=== PATIENT | male | born 1995 | race Caucasian/White ===

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

== ENCOUNTER 2017-04-02 01:00 | Inpatient (IN) | payer OTHER ==
[2017-04-02 01:45] LABS: ABS Basophils 0.1 10^3/ul (0-0.2); ABS Eosinophils 0.3 10^3/ul (0-0.6); ABS Lymphocytes 2.2 10^3/ul (1.0-4.8); ABS Monocytes 0.8 10^3/ul (0-0.8); ABS Nucleated RBC 0 10^3/ul; Eosinophil % 2.9 % (0-6); Hematocrit 45 % (42-52); Hemoglobin 15.6 g/dl (14.0-18.0); Lymphocyte % 23.4 % (25-47); Mean Corpuscular HGB Conc 35 g/dl (31-36); Mean Corpuscular Hemoglobin 30 pg (27-31); Mean Corpuscular Volume 86 fL (80-94); Mean Platelet Volume 8 um3 (7.4-10.4); Nucleated Red Blood Cells % 0.1; Platelet Count 227 10^3/ul (150-450); Red Blood Count 5.15 10^6/ul (4.0-5.4); Red Cell Distribution Width 13 % (10.5-15); White Blood Count 9.4 10^3/ul (3.5-10.8)
[2017-04-02 01:51] LABS: Urine Appearance Clear; Urine Blood Negative (Negative); Urine Color Yellow; Urine Ketones Trace (Negative); Urine Protein Negative (Negative); Urine Specific Gravity 1.021 (1.010-1.030); Urine Urobilinogen Positive (Negative)
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
--- NOTE | 2017-04-02 09:10 | PN ---
ED Flex Patient Progress Note Date of Service: 04/02/17 Subjective: This is a 21 year-old M who is pending admission to [facility] OR transfer to another psychiatric facility secondary to suicidal ideation and depression. Whichever bed opens up first. Pt offers no complaints at this time, sleeping upon arrival. Eating, drinking and sleeping comfortably. Objective: Vitals: Most recent vital signs documented below. General NAD, Alert and oriented x3. Heart: rrr at 60 bpm Lungs: CTA or with rales, rhonchi, wheezing Laboratory: Current laboratory results documented below. Assessment: depression suicidal ideation pending admission once bed opens up Plan: Pending psychiatric transfer OR admit pending bed opening. Will follow up daily. Vital Signs Temp Pulse Resp BP Pulse Ox 98.8 F 57 16 113/68 99 04/02/17 02:31 04/02/17 02:31 04/02/17 02:31 04/02/17 02:31 04/02/17 02:31 Lab Results - Entire Visit 04/02/17 04/02/17 04/02/17 01:35 01:35 01:35 WBC 9.4 RBC 5.15 Hgb 15.6 Hct 45 MCV 86 MCH 30 MCHC 35 RDW 13 Plt Count 227 MPV 8 Neut % (Auto) 64.3 Lymph % (Auto) 23.4 L Dav[place] % (Auto) 8.8 Eos % (Auto) 2.9 Baso % (Auto) 0.6 Absolute Neuts (auto) 6.0 Absolute Lymphs (auto) 2.2 Absolute Monos (auto) 0.8 Absolute Eos (auto) 0.3 Absolute Basos (auto) 0.1 Absolute Nucleated RBC 0 Nucleated RBC % 0.1 Sodium Potassium Chloride Carbon Dioxide Anion Gap BUN Creatinine Est GFR ( Amer) Est GFR (Non-Af Amer) BUN/Creatinine Ratio Glucose Calcium Total Bilirubin AST ALT Alkaline Phosphatase Total Protein Albumin Globulin Albumin/Globulin Ratio TSH Urine Color Yellow Urine Appearance Clear Urine pH 7.0 Ur Specific [place] 1.021 Urine Protein Negative Urine Ketones Trace H Urine Blood Negative Urine Nitrate Negative Urine Bilirubin Negative Urine Urobilinogen Positive H Ur Leukocyte Esterase Negative Urine Glucose Negative Urine Ascorbic Acid * H Salicylates Urine Opiates Screen None detected Acetaminophen Ur Barbiturates Screen None detected Ur Phencyclidine Scrn None detected Ur Amphetamines Screen None detected U Benzodiazepines Scrn None detected Urine Cocaine Screen None detected U Cannabinoids Screen None detected Serum Alcohol 04/02/17 01:35 WBC RBC Hgb Hct MCV MCH MCHC RDW Plt Count MPV Neut % (Auto) Lymph % (Auto) [place] % (Auto) Eos % (Auto) Baso % (Auto) Absolute Neuts (auto) Absolute Lymphs (auto) Absolute Monos (auto) Absolute Eos (auto) Absolute Basos (auto) Absolute Nucleated RBC Nucleated RBC % Sodium 133 Potassium 3.7 Chloride 100 L Carbon Dioxide 29 Anion Gap 4 BUN 13 Creatinine 0.87 Est GFR ( Amer) 145.4 Est GFR (Non-Af Amer) 113.0 BUN/Creatinine Ratio 14.9 Glucose 108 H Calcium 9.5 Total Bilirubin 0.60 AST 23 ALT 14 Alkaline Phosphatase 77 Total Protein 7.2 Albumin 4.6 Globulin 2.6 Albumin/Globulin Ratio 1.8 TSH 1.97 Urine Color Urine Appearance Urine pH Ur Specific [place] Urine Protein Urine Ketones Urine Blood Urine Nitrate Urine Bilirubin Urine Urobilinogen Ur Leukocyte Esterase Urine Glucose Urine Ascorbic Acid Salicylates < 2.50 Urine Opiates Screen Acetaminophen < 15 Ur Barbiturates Screen Ur Phencyclidine Scrn Ur Amphetamines Screen U Benzodiazepines Scrn Urine Cocaine Screen U Cannabinoids Screen Serum Alcohol < 10
[2017-04-02] MEDS ORDERED: Acetaminophen TAB* 325 MG PO PRN (14:04)
[2017-04-02] MEDS ORDERED: Al Hydrox/Mg Hydrox/Simet LIQ* 30 ML UDC PO PRN (14:04)
[2017-04-02] MEDS ORDERED: hydrOXYzine HCL TAB* 50 MG PO PRN (14:05)
[2017-04-02] MEDS: FLUoxetine CAP* 20 MG PO SCH (15:07)
--- NOTE | 2017-04-02 23:08 | ED ---
Brennan Lowe Tiffany, scribed for Izabel Daniel MD on 04/02/17 at 1229 . Progress - Progress Note Progress Note: Patient not signed out to Dr. Polanco at shift change. Dr. Daniel will assume patient care instead. - Consult/PCP Time Called: Re-Evaluation - Re-Evaluation firs Re-Evaluation Time: 12:06 - 04/02/17, Dr. Daniel Change: Unchanged - 12:06 Comment: Patient is re-examined. Patient reports not feeling suicidal at the moment, but is still depressed. His exam is normal except that he has halting speech, superficial abrasions to the neck and bilateral arms. Abrasions are not bleeding and have no exudates. Patient is alert and oriented x3, calm and cooperative. Patient is informed of admission to BHU at [facility]. He will be admitted to Dr. Bradford (psychiatrist), per Fran (mental health). He is agreeable. Also advised that there are resources at [facility] for further care once he is discharged. Course/Dx - Course Course Of Treatment: Patient is re-examined by Dr. Daniel in Flex Unit prior to disposition of admission to BHU by Dr. Bradford. Normal exam except superficial abrasions to neck and bilateral arms. No bleeding. No exudate. Pt is in no apparent distress. Pt has no physical or medical complaints. Patient agreeable to admission to BHU at [facility]. - Diagnoses Provider Diagnoses: Depressive disorder, Evidence of self-harm The documentation as recorded by the Brennan echevarria Tiffany accurately reflects the service I personally performed and the decisions made by , Izabel Daniel MD.
[2017-04-03] MEDS: FLUoxetine CAP* 20 MG PO SCH (10:57)
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
[2017-04-04] MEDS: FLUoxetine CAP* 20 MG PO SCH (09:10)
--- NOTE | 2017-04-04 11:07 | PN ---
Subjective - Subjective Date of Service: 04/04/17 Service Type: 33934 Hosp care 25 min moderate complexity Subjective: Blanco is found reading in the milieu wearing scrubs. He is agreeable to discussing his care although he is very anxious. He does offer a few smiles, although he does not make eye contact while smiling. He talked to his siblings last night. He declined to talk to his father "in that moment" but states he is willing to do so now. He is eager to get back to school, not wanting to fall behind. Objective - Appearance Appearance: Thin Framed Dysmorphic Features: No Hygiene: Normal Grooming: Fairly Well Kept - Behavior Psychomotor Activities: Normal Exhibits Abnormal Movement: No - Attitude and Relatedness Attitude and Relatedness: Anxious Eye Contact: Poor - Speech Quality: Pressured Latencies: Normal Quantity: Terse - Mood Patient's Decription of Mood: "Okay" - Affect Observed Affect: Constricted Affect Consistent with: Dysphoria - Thought Process Patient's Thought Process: Coherent Thought Content: No Passive Wish, No Suicidal Planning, No Homicidal Ideation, No Paranoid Ideation - Sensorium Experiencing Hallucinations: No, Sensorium is Clear Type of Hallucinations: Visual: No, Auditory: No, Command: No - Level of Consciousness Level of Consciousness: Alert Orientation: Yes Intact, Yes Orientated to Time, Yes Orientated to Place, Yes Orientated to Person - Impulse Control Impulse Control: Intact - Insight and Judgement Insight and Judgement: Fair - Group Participation Particating in Group Activities: Yes - Medication Management Medication Management Adherence: Yes - Additional Observations Comments: Blanco is dressed in scrubs, makes poor eye contact, has uncombed hair, and is unshaven. Assessment - Assessment Merits Inpatient Hospitalization: For Immediate Safety, For Ongoing Evaluation Inpatient DSM-V Dx: F33.2 Clinical Impression: Blanco has severe symptoms of depression, such as extreme guilt, concentration difficulties, difficulty eating enough, and suicidal thoughts. He will carry a diagnosis of Major Depressive D/o, recurrent, severe. There are some curiosities to his speech and some latencies which are unusual. He also seems to lose track of his thoughts at times. Plan - Plan Treatment Plan: Name: BLANCO YANICK Birthdate: 1995 [id number] Continued Medication Management: Different Medication Medications: Current Medications Acetaminophen (Tylenol Tab*) 650 mg PO Q4H PRN PRN Reason: for pain; or Temp >101 F Al Hydrox/Mg Hydrox/Simethicone (Maalox Plus*) 30 ml PO Q4H PRN PRN Reason: INDIGESTION Aripiprazole (Abilify Tab*) 2 mg PO BEDTIME ALEX Fluoxetine HCl (Prozac Cap*) 40 mg PO DAILY ALEX Last Admin: 04/04/17 09:10 Dose: 40 mg Hydroxyzine HCl (Atarax Tab*) 50 mg PO Q6H PRN PRN Reason: ANXIETY - Discharge Plan Additional Comments: Blanco is agreeable to a start of 2 mg of Abilify PO QHS. He also agrees to fill out the MMPI. He further agrees to stay until Sunday.
--- NOTE | 2017-04-04 13:29 | PN ---
[facility]: Group Therapy Note - Service Type Service Type: [id number] Group Psychotherapy - Cognitive Behavioral Group Therapy ( CBT):Patient was attentive and participatory in CBT programming this morning, and remained in good behavioral control. Patient expressed positive insights regarding relevant treatment interventions and goals.
[2017-04-04] MEDS: ARIPiprazole TAB* 2 MG PO SCH (22:05)
[2017-04-05] MEDS: FLUoxetine CAP* 20 MG PO SCH (09:03)
--- NOTE | 2017-04-05 15:21 | PN ---
Subjective - Subjective Date of Service: 04/05/17 Service Type: 02584 Hosp care 15 min low complexity Subjective: Blanco is found sitting in the milieu reading a book. he states it's his third novel since he's been here and he hopes he can finish it. He is noticeably less anxious. Although he still apologizes, it is only once or twice during our conversation. Although his father was expected by staff today, apparently his father has gone home. Blanco feels like this is a good sign, that he is well enough to be discharged back to school rather than going home to [place] with his dad. He offers no complaints about the medications. He is pleasant and polite in conversation. Objective - Appearance Appearance: Thin Framed Dysmorphic Features: No Hygiene: Normal Grooming: Well Kept - Behavior Psychomotor Activities: Normal Exhibits Abnormal Movement: No - Attitude and Relatedness Attitude and Relatedness: Cooperative Eye Contact: Fair - Speech Quality: Pressured Latencies: Normal Quantity: Appropriate - Mood Patient's Decription of Mood: "Good" - Affect Observed Affect: Non-labile Affect Consistent with: Euthymia - Thought Process Patient's Thought Process: Goal Directed Thought Content: No Passive Wish, No Suicidal Planning, No Homicidal Ideation, No Paranoid Ideation - Sensorium Experiencing Hallucinations: No, Sensorium is Clear Type of Hallucinations: Visual: No, Auditory: No, Command: No - Level of Consciousness Level of Consciousness: Alert Orientation: Yes Intact, Yes Orientated to Time, Yes Orientated to Place, Yes Orientated to Person - Impulse Control Impulse Control: Intact - Insight and Judgement Insight and Judgement: Good - Group Participation Particating in Group Activities: Yes - Medication Management Medication Management Adherence: Yes - Additional Observations Comments: Blanco is dressed in scrubs, makes better eye contact, smiles frequently, and is able to concentrate on books. Assessment - Assessment Merits Inpatient Hospitalization: For Stabilization Inpatient DSM-V Dx: F33.2 Clinical Impression: Blanco has severe symptoms of depression, such as extreme guilt, concentration difficulties, difficulty eating enough, and suicidal thoughts. He will carry a diagnosis of Major Depressive D/o, recurrent, severe. There are some curiosities to his speech and some latencies which are unusual. He also seems to lose track of his thoughts at times. Plan - Plan Treatment Plan: Name: BLANCO YANICK Birthdate: 1995 [id number] Medications: Current Medications Acetaminophen (Tylenol Tab*) 650 mg PO Q4H PRN PRN Reason: for pain; or Temp >101 F Al Hydrox/Mg Hydrox/Simethicone (Maalox Plus*) 30 ml PO Q4H PRN PRN Reason: INDIGESTION Aripiprazole (Abilify Tab*) 2 mg PO BEDTIME [facility] Last Admin: 04/04/17 22:05 Dose: 2 mg Fluoxetine HCl (Prozac Cap*) 40 mg PO DAILY [facility] Last Admin: 04/05/17 09:03 Dose: 40 mg Hydroxyzine HCl (Atarax Tab*) 50 mg PO Q6H PRN PRN Reason: ANXIETY - Discharge Plan Discharge Plan: Outpatient Follow Up Outpatient Program: Counseling[facility]Psych Services at [place] Additional Comments: Blanco is agreeable to a start of 2 mg of Abilify PO QHS. He also agrees to fill out the MMPI. He further agrees to stay until Sunday.
--- NOTE | 2017-04-05 16:24 | PN ---
MHU: Group Therapy Note - Service Type Service Type: 06954 Group Psychotherapy - Medication Education Group: Patient attended group and presented with flat affect that did not vary with discussion. Although responsive to direct prompts to respond to questions, patient did not engage in spontaneous conversation.
[2017-04-05] MEDS: ARIPiprazole TAB* 2 MG PO SCH (21:33)
[2017-04-06 08:13] VITALS: BP 131/62
[2017-04-06] MEDS: FLUoxetine CAP* 20 MG PO SCH (08:24)
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
== END 2017-04-06 11:45 | disposition home or self-care (01) | DRG 885 ==
LOC: EEVIPCON 01:00 → ED 01:00 → BSU 14:04
PROVIDERS: ADMIT Psychiatry & Neurology Psychiatry; ATTEND Psychiatry & Neurology Psychiatry
PROC: GZHZZZZ Group Psychotherapy (ICD-10-PCS; principal; 2017-04-05)
DX: F33.2 Major depressive disorder, recurrent severe without psychotic features (principal); R45.851 Suicidal ideations; F41.1 Generalized anxiety disorder; Z91.5 Personal history of self-harm; Z72.89 Other problems related to lifestyle
CPT/HCPCS: 36415; 80053; 80061; 80307; 80320; 80329; 81003; 83036; 84443; 85025; 90853; 93005; 99222; 99231; 99232; 99238; 99284; A9270-GY; G0480

== ENCOUNTER 2017-04-25 13:20 | Emergency (ER) | payer OTHER ==
[2017-04-25 13:40] LABS: Urine Appearance Clear; Urine Blood Negative (Negative); Urine Color Straw; Urine Ketones Negative (Negative); Urine Protein Negative (Negative); Urine Specific Gravity 1.009 (1.010-1.030); Urine Urobilinogen Negative (Negative)
[2017-04-25 14:12] LABS: Hematocrit 44 % (42-52); Hemoglobin 15.3 g/dl (14.0-18.0); Mean Corpuscular HGB Conc 35 g/dl (31-36); Mean Corpuscular Hemoglobin 30 pg (27-31); Mean Corpuscular Volume 86 fL (80-94); Mean Platelet Volume 9 um3 (7.4-10.4); Platelet Count 215 10^3/ul (150-450); Red Blood Count 5.13 10^6/ul (4.0-5.4); Red Cell Distribution Width 13 % (10.5-15)
[2017-04-25 14:29] LABS: EGFR Non-African American 126.4 (>60)
[2017-04-25 14:52] LABS: ABS Basophils 0 10^3/ul (0-0.2); ABS Eosinophils 0.1 10^3/ul (0-0.6); ABS Lymphocytes 1.5 10^3/ul (1.0-4.8); ABS Monocytes 0.4 10^3/ul (0-0.8); ABS Neutrophils 3.8 10^3/ul (1.5-7.7); ABS Nucleated RBC 0 10^3/ul; Eosinophil % 2.5 % (0-6); Lymphocyte % 25.4 % (25-47); Nucleated Red Blood Cells % 0.3
--- NOTE | 2017-04-25 18:22 | ED ---
Haider Lowe Angela, scribed for Honorio Brown MD on 04/25/17 at 1349 . Psychiatric Complaint - HPI Summary HPI Summary: This pt is a 21 y/o male presenting to [facility] via EMS on a 9.41 for depression. Pt reports he has increased SI thoughts and plan. He states he has cut his bilateral forearms last night. Pt notes he has not been sleeping many hours lately and has had decreased appetite. He states his suicidal thoughts and plan have been aggravated by recent stress. Per nurse's note, pt withdrew from [facility] on 04/17/17 and has 1 more week to figure out what to do. PMHx includes depression. Pt is currently on Prozac. - History Of Current Complaint Time Seen by Provider: 04/25/17 13:34 Hx Obtained From: Patient Onset/Duration: Lasting Days, Still Present Timing: Days Severity Currently: Severe Character: Depressed Aggravating Factor(s): Recent Stress Alleviating Factor(s): Nothing Associated Signs And Symptoms: Positive: Confused, Sleep Disturbance Related History: Positive For: Prior Psychiatric Issues Has Suicidal: Reports: Thoughts, With A Plan Has Homicidal: Denies: Thoughts, With A Plan - Allergies/Home Medications Allergies/Adverse Reactions: Allergies Allergy/AdvReac Type Severity Reaction Status Date / Time No Known Allergies Allergy Verified 04/16/16 03:25 PMH/Surg Hx/FS Hx/Imm Hx Musculoskeletal History: Reports: Other Musculoskeletal History - states he had a fractured collar bone "years ago" Sensory History: Reports: Hx Contacts or Glasses Denies: Hx Legally Blind, Hx Hearing Aid Opthamlomology History: Reports: Hx Contacts or Glasses Denies: Hx Legally Blind Psychiatric History: Reports: Hx Anxiety, Hx Depression, Hx Inpatient Treatment , Hx Community Mental Health Tx, Hx Suicide Attempt Denies: Hx Eating Disorder, Hx of Violent Episodes Against Others, Hx Substance Abuse - Immunization History Date of Tetanus Vaccine: utd Date of Influenza Vaccine: unk Infectious Disease History: Denies: Traveled Outside the [place] in Last 30 Days - Family History Known Family History: Positive: Other - Depression - Social History Alcohol Use: Rare Alcohol Amount: monthly Substance Use Type: Reports: None Smoking Status (MU): Never Smoked Tobacco Have You Smoked in the Last Year: No Review of Systems Constitutional: Other - decreased appetite, sleep disturbance Negative: Fever, Chills Cardiovascular: Negative Respiratory: Negative Genitourinary: Negative Musculoskeletal: Negative Skin: Other - cuts to bilateral arms Psychological: Other - SI thoughts and plan Positive: Depressed. Negative: Other - HI All Other Systems Reviewed And Are Negative: Yes Physical Exam - Summary Physical Exam Summary: VITAL SIGNS: Reviewed. GENERAL: Patient is a well-developed and nourished male. Patient is not in any acute respiratory distress. HEAD AND FACE: No signs of trauma. No ecchymosis, hematomas or skull depressions. No sinus tenderness. EYES: PERRLA, EOMI x 2, No injected conjunctiva, no nystagmus. EARS: Hearing grossly intact. Ear canals and tympanic membranes are within normal limits. MOUTH: Oropharynx within normal limits. NECK: Supple, trachea is midline, no adenopathy, no JVD, no carotid bruit, no c- spine tenderness, neck with full ROM. CHEST: Symmetric, no tenderness at palpation LUNGS: Clear to auscultation bilaterally. No wheezing or crackles. CVS: Regular rate and rhythm, S1 and S2 present, no murmurs or gallops appreciated. ABDOMEN: Soft, non-tender. No signs of distention. No rebound no guarding, and no masses palpated. Bowel sounds are normal. EXTREMITIES: FROM in all major joints, no edema, no cyanosis or clubbing. NEURO: Alert and oriented x 3. No acute neurological deficits. Speech is normal and follows commands. SKIN: Dry and warm PSYCH: Depressed, quiet, and admits to suicidal thoughts and plan. Triage Information Reviewed: Yes Vital Signs On Initial Exam: Initial Vitals Temp Pulse Resp BP Pulse Ox 98.5 F 55 15 104/75 100 04/25/17 13:39 04/25/17 13:39 04/25/17 13:39 04/25/17 13:39 04/25/17 13:39 Vital Signs Reviewed: Yes Diagnostics - Vital Signs Vital Signs Temp Pulse Resp BP Pulse Ox 04/25/17 16:02 97.4 F 60 16 100/64 100 04/25/17 13:39 98.5 F 55 15 104/75 100 - Laboratory Lab Results: Lab Results 04/25/17 Range/Units 13:28 Urine Color Straw Urine Appearance Clear Urine pH 8.0 (5-9) Ur Specific [place] 1.009 L (1.010-1.030) Urine Protein Negative (Negative) Urine Ketones Negative (Negative) Urine Blood Negative (Negative) Urine Nitrate Negative (Negative) Urine Bilirubin Negative (Negative) Urine Urobilinogen Negative (Negative) Ur Leukocyte Esterase Negative (Negative) Urine Glucose Negative (Negative) Result Diagrams: 04/25/17 14:00 04/25/17 14:00 Lab Statement: Any lab studies that have been ordered have been reviewed, and results considered in the medical decision making process. Course/Dx - Course Assessment/Plan: This pt is a 21 y/o male presenting to [facility] via EMS on a 9.41 for depression. Pt reports he has increased SI thoughts and plan. He states he has cut his bilateral forearms last night. Pt notes he has not been sleeping many hours lately and has had decreased appetite. He states his suicidal thoughts and plan have been aggravated by recent stress. Per nurse's note, pt withdrew from [facility] on 04/17/17 and has 1 more week to figure out what to do. PMHx includes depression. Pt is currently on Prozac. Pt is medically cleared at 13:45. He is awaiting MHE. Pt was evaluated by the mental health filing or registry clerk and his case was reviewed by Dr. Ayala. Dr. Ayala recommends to discharge the pt with outpatient follow up at [facility]. Pt will be discharged to home, in stable condition, with a diagnosis of depression . - Differential Dx/Clinical Impression Differential Diagnosis/HQI/PQRI: Positive: Anxiety, Depression Provider Diagnosis: Depression Discharge - Discharge Plan Condition: Stable Disposition: HOME Patient Education Materials: Depression (ED) Referrals: [facility] [Outside] (Please follow up with [facility] as soon as possible) Non Staff,Doctor [Primary Care Provider] - The documentation as recorded by the Haider echevarria Angela accurately reflects the service I personally performed and the decisions made by me, Honorio Brown MD.
[2017-04-25 18:30] VITALS: BP 109/53
== END 2017-04-25 18:27 | disposition home or self-care (01) ==
LOC: ED 13:20
DX: F32.9 Major depressive disorder, single episode, unspecified (principal); R45.851 Suicidal ideations
CPT/HCPCS: 36415; 80053; 80307; 80320; 80329; 81003; 84443; 85025; 99284; G0480